=== PATIENT | female | born 1980 | race Two or more races ===

== ENCOUNTER 2019-02-02 09:07 | Emergency (ER) | payer SELFPAY ==
[~2019-02-02] VITALS: Ht 147.3 cm; Wt 65.9 kg
[2019-02-02 09:11] VITALS: Ht 147.3 cm; Wt 65.9 kg
[2019-02-02 09:34] LABS: BASOPHILS 0.1 % (0-2); EOSINOPHILS 1.4 % (0-7); HEMATOCRIT 35.2 % (36.0-48.0); IMMATURE GRANULOCYTES 0.1 % (0-5); LYMPHOCYTES 22.5 % (15-50); MCH 31.8 pg (26.0-34.0); MCHC 36.9 g/dL (31.0-37.0); MCV 86.1 fL (80.0-100.0); MEAN PLATELET VOLUME 9.1 fL (7.4-10.4); MONOCYTES 7.1 % (2-11); NEUTROPHILS 68.8 % (40-80); PLATELET COUNT 129 10x3/uL (130-400); RBC 4.09 10x6/uL (4.00-5.40); WBC 6.9 10x3/uL (4.8-10.8)
[2019-02-02 09:36] VITALS: BP 105/46
[2019-02-02 09:47] LABS: ALBUMIN 3.4 g/dL (3.4-5.0); ALKALINE PHOSPHATASE 58 U/L (46-116); ALT (SGPT) 20 U/L (10-68); BILIRUBIN - TOTAL 0.77 mg/dL (0.2-1.3); CALC OSMOLALITY 276 mosm/kg (275-300); CALCIUM 8.3 mg/dL (8.5-10.1); CARBON DIOXIDE 24.1 mmol/L (21.0-32.0); CHLORIDE - SERUM 107 mmol/L (98-107); CREATININE - SERUM 0.6 mg/dL (0.6-1.3); GLUCOSE 99 mg/dL (74-106); POTASSIUM - SERUM 3.7 mmol/L (3.5-5.1); PROTEIN - SERUM 6.9 g/dL (6.4-8.2); SODIUM 140 mmol/L (136-145); UREA NITROGEN 8 mg/dL (7-18); eGFR NON AFRICAN AMERICAN > 90 mL/min (90-120)
[2019-02-02 09:54] LABS: HCG - QUANTITATIVE (MATERNAL) 837 mIU/mL
[2019-02-02 09:56] LABS: APPEARANCE HAZY (CLEAR); BILIRUBIN NEGATIVE (NEGATIVE); COLOR YELLOW (YELLOW); GLUCOSE NEGATIVE (NEGATIVE); KETONE NEGATIVE (NEGATIVE); NITRITE NEGATIVE (NEGATIVE); PROTEIN TRACE mg/dL (NEGATIVE); SPECIFIC GRAVITY 1.015 (1.005-1.020)
[2019-02-02 09:57] LABS: BACTERIA MANY /hpf (NONE SEEN); EPITHELIAL CELLS 0-5 /hpf (0-5); MUCUS >1+ /lpf (NONE SEEN); RED CELLS - URINE 0-5 /hpf (0-5)
[2019-02-02] MEDS ORDERED: MACROBID100 MG PO (11:41)
== END 2019-02-02 12:30 | disposition home or self-care (01) ==
LOC: D.ER 09:07
PROVIDERS: Family Medicine
DX: O20.0 Threatened abortion (principal); Z3A.00 Weeks of gestation of pregnancy not specified; O23.40 Unspecified infection of urinary tract in pregnancy, unspecified trimester